=== PATIENT | female | born 1950 | race Caucasian/White ===

== ENCOUNTER 2024-07-29 09:09 | Inpatient (IN) | payer MEDICARE ==
--- NOTE | 2024-07-29 09:40 | ED ---
General Adult HPI - General Chief complaint: Abdominal Pain Stated complaint: abd pain Time Seen by Provider: 07/29/24 09:15 Source: patient, RN/MD, RN notes reviewed Mode of arrival: ambulatory Limitations: no limitations - History of Present Illness Initial comments: Patient is a 74-year-old female present to the emergency department with concerns with dark stools. Patient had abdominal discomfort yesterday with dark stools. Patient has been experiencing abdominal discomfort for several days. Patient did have outpatient CT and ultrasound. Ultrasound with nonspecific findings. CT scan with concerns for thickening of the stomach and possible ulcer with inflammation. Patient states no significant discomfort at this time. Patient did have some nausea and lightheadedness in the middle of the night and did feel sweaty. Though symptoms have resolved. Right now patient is not feeling bad. - Related Data Allergies Allergy/AdvReac Type Severity Reaction Status Date / Time Sulfa (Sulfonamide Allergy Rash/Hives Verified 07/29/24 10:25 Antibiotics) Review of Systems ROS Statement: Those systems with pertinent positive or pertinent negative responses have been documented in the HPI. ROS Other: All systems not noted in ROS Statement are negative. Constitutional: Denies: fever Eyes: Denies: eye pain ENT: Denies: ear pain Respiratory: Denies: dyspnea Cardiovascular: Denies: chest pain Endocrine: Denies: fatigue Gastrointestinal: Reports: as per HPI, melena Genitourinary: Denies: dysuria Past Medical History Past Medical History: No Reported History History of Any Multi-Drug Resistant Organisms: None Reported Past Surgical History: Breast Surgery Past Psychological History: No Psychological Hx Reported Smoking Status: Former smoker Past Alcohol Use History: None Reported Past Drug Use History: None Reported General Exam Limitations: no limitations General appearance: alert, in no apparent distress Head exam: Present: normocephalic Eye exam: Present: normal appearance Neck exam: Present: normal inspection Respiratory exam: Present: normal lung sounds bilaterally Cardiovascular Exam: Present: regular rate, normal rhythm GI/Abdominal exam: Present: soft. Absent: tenderness Extremities exam: Present: normal inspection. Absent: pedal edema, calf tenderness Neurological exam: Present: alert Psychiatric exam: Present: normal affect, normal mood Skin exam: Present: normal color Course Vital Signs 07/29/24 07/29/24 07/29/24 09:11 09:46 10:07 Temperature 97.8 F Pulse Rate 126 H 99 95 Respiratory 18 16 18 Rate Blood Pressure 110/63 98/63 107/65 O2 Sat by Pulse 99 97 100 Oximetry EKG Findings - EKG Results: EKG: interpreted by ERMD, sinus rhythm, normal axis, normal QRS, normal ST/T EKG shows: tachycardia Medical Decision Making - Medical Decision Making Was pt. sent in by a medical professional or institution (, PA, [employer], urgent care, hospital, or retirement...) When possible be specific @ -No Did you speak to anyone other than the patient for history (EMS, parent, family, police, friend...)? What history was obtained from this source @ -I did speak with Dr. Oneill who will provide history including patient's symptoms and onset Did you review nursing and triage notes (agree or disagree)? Why? @ -I reviewed and agree with nursing and triage notes Were old charts reviewed (outside hosp., previous admission, EMS record, old EKG, old radiological studies, urgent care reports/EKG's, retirement records)? Report findings @ -Previous hemoglobin levels reviewed, hemoglobin has dropped from 14-8 Differential Diagnosis (chest pain, altered mental status, abdominal pain women, abdominal pain men, vaginal bleeding, weakness, fever, dyspnea, syncope, headache, dizziness, GI bleed, back pain, seizure, CVA, palpatations, mental health, musculoskeletal)? @ -Differential Abdominal Pain Women: Appendicitis, Cholecystitis, diverticulosis, ischemic bowel, pancreatitis, hepatitis, UTI, gastroenteritis, AAA, incarcerated hernia, bowel obstruction, constipation, inflammatory bowel, hepatitis, peptic ulcer disease, splenic infarction, perforated viscus, vulvitis, ovarian torsion, PID, kidney stone, placenta abruption, this is not meant to be an all-inclusive list EKG interpreted by me (3pts min.). @ -As above X-rays interpreted by me (1pt min.). @ -None done CT interpreted by me (1pt min.). @ -None done U/S interpreted by me (1pt. min.). @ -None done What testing was considered but not performed or refused? (CT, X-rays, U/S, labs)? Why? @ -Considered imaging however patient has had CT and ultrasound done recently, reports attached What meds were considered but not given or refused? Why? @ -None Did you discuss the management of the patient with other professionals (professionals i.e. DrKathryn, PA, [employer], lab, RT, psych nurse, social work professor, director general, teacher, liaison officer, renal case manager)? Give summary @ -Dr. Perez with plans to take patient for scope Was smoking cessation discussed for >3mins.? @ -No Was critical care preformed (if so, how long)? @ -No Were there social determinants of health that impacted care today? How? (Homelessness, low income, unemployed, alcoholism, drug addiction, transportation, low edu. Level, literacy, decrease access to med. care, halfway, rehab)? @ -No Was there de-escalation of care discussed even if they declined (Discuss DNR or withdrawal of care, Hospice)? DNR status @ -No What co-morbidities impacted this encounter? (DM, HTN, Smoking, COPD, CAD, Cancer, CVA, ARF, Chemo, Hep., AIDS, mental health diagnosis, sleep apnea, morbid obesity)? @ -None Was patient admitted / discharged? Hospital course, mention meds given and route, prescriptions, significant lab abnormalities, going to OR and other p ertinent info. @ -Patient presents with abdominal discomfort melena and decreasing hemoglobin. Patient will be admitted. Case also discussed with Dr. Maddox who will take patient for scope. Patient and family are updated. Admission orders written Undiagnosed new problem with uncertain prognosis? @ -No Drug Therapy requiring intensive monitoring for toxicity (Heparin, Nitro, Insulin, Cardizem)? @ -No Were any procedures done? @ -No Diagnosis/symptom? @ -Upper GI hemorrhage Acute, or Chronic, or Acute on Chronic? @ -Acute Uncomplicated (without systemic symptoms) or Complicated (systemic symptoms)? @ -Default Side effects of treatment? @ -No Exacerbation, Progression, or Severe Exacerbation? @ -No Poses a threat to life or bodily function? How? (Chest pain, [place], NM, pneumonia, PE, COPD, DKA, ARF, appy, cholecystitis, CVA, Diverticulitis, Homicidal, Suicidal, threat to staff... and all critical care pts) @ -No - Lab Data Result diagrams: 07/29/24 09:40 07/29/24 09:40 Lab Results 07/29/24 07/29/24 07/29/24 Range/Units 09:40 09:40 09:40 WBC 9.50 (4.50-10.00) 10*3/uL RBC 2.90 L (4.10-5.20) 10*6/uL Hgb 8.1 L (12.0-15.0) g/dL Hct 25.4 L (37.2-46.3) % MCV 87.6 (80.0-97.0) fL MCH 27.9 (27.0-32.0) pg MCHC 31.9 L (32.0-37.0) g/dL Plt Count 342 (140-440) 10*3/uL MPV 10.0 (9.5-12.2) fL Immature Gran % (Auto) 0.3 % Neutrophils % 84.0 % Lymphocytes % 9.5 % Monocytes % 5.8 % Eosinophils % 0.1 % Basophils % 0.3 % Immature Gran # 0.03 (0.00-0.04) 10*3/uL Neutrophils # 7.98 H (1.80-7.70) 10*3/uL Lymphocytes # 0.90 (0.90-5.00) 10*3/uL Monocytes # 0.55 (0.20-1.00) 10*3/uL Eosinophils # 0.01 L (0.04-0.35) 10*3/uL Basophils # 0.03 (0.00-0.10) 10*3/uL PT 11.7 (10.0-12.5) sec INR 1.1 (<1.2) APTT 20.6 L (22.0-30.0) sec Sodium 138 (137-145) mmol/L Potassium 4.4 (3.5-5.1) mmol/L Chloride 106 (98-107) mmol/L Carbon Dioxide 24 (22-30) mmol/L Anion Gap 8 mmol/L BUN 39 H (7-17) mg/dL Creatinine 0.50 L (0.52-1.04) mg/dL Est GFR (CKD-EPI)AfAm >90 (>60 ml/min/1.73 sqM) Est GFR (CKD-EPI)NonAf >90 (>60 ml/min/1.73 sqM) Glucose 116 H (74-99) mg/dL Calcium 8.8 (8.4-10.2) mg/dL Magnesium 1.8 (1.6-2.3) mg/dL Total Bilirubin 0.4 (0.2-1.3) mg/dL AST 17 (14-36) U/L ALT 13 (4-34) U/L Alkaline Phosphatase 65 (38-126) U/L Total Protein 6.0 L (6.3-8.2) g/dL Albumin 3.1 L (3.5-5.0) g/dL Lipase 102 (23-300) U/L Disposition Clinical Impression: Upper GI hemorrhage Disposition: ADMITTED IP TO THIS HOSP Is patient prescribed a controlled substance at d/c from ED?: No Referrals: Debbi Boyd MD [Primary Care Provider] - 1-2 days Time of Disposition: 11:05
[2024-07-29] MEDS: PANTOPRAZOLE 40 MG/10 ML VIAL IVP STA (09:43)
[2024-07-29 09:48] LABS: Basophils # (A) 0.03 10*3/uL (0.00-0.10); Basophils % (A) 0.3 %; Eosinophils # (A) 0.01 10*3/uL (0.04-0.35); Eosinophils % (A) 0.1 %; HCT 25.4 % (37.2-46.3); HGB 8.1 g/dL (12.0-15.0); Lymphocytes % (A) 9.5 %; MCH 27.9 pg (27.0-32.0); MCHC 31.9 g/dL (32.0-37.0); MCV 87.6 fL (80.0-97.0); Monocytes # (A) 0.55 10*3/uL (0.20-1.00); Monocytes % (A) 5.8 %; Neutrophils # (A) 7.98 10*3/uL (1.80-7.70); Platelet Count 342 10*3/uL (140-440); RDW 16.6 % (11.5-14.5)
[2024-07-29 10:08] LABS: ALT 13 U/L (4-34); AST 17 U/L (14-36); African American GFR (CKD) >90 (>60 ml/min/1.73 sqM); Albumin 3.1 g/dL (3.5-5.0); Alkaline Phosphatase 65 U/L (38-126); Anion Gap 8 mmol/L; Blood Urea Nitrogen 39 mg/dL (7-17); Calcium 8.8 mg/dL (8.4-10.2); Carbon Dioxide 24 mmol/L (22-30); Chloride 106 mmol/L (98-107); Glucose 116 mg/dL (74-99); Lipase 102 U/L (23-300); Magnesium 1.8 mg/dL (1.6-2.3); Non-African American GFR(CKD) >90 (>60 ml/min/1.73 sqM); Potassium 4.4 mmol/L (3.5-5.1); Sodium 138 mmol/L (137-145); Total Bilirubin 0.4 mg/dL (0.2-1.3)
[2024-07-29 10:20] LABS: INR 1.1 (<1.2); Prothrombin Time 11.7 sec (10.0-12.5)
[2024-07-29 10:30] LABS: Partial Thromboplastin Time 20.6 sec (22.0-30.0)
[2024-07-29] MEDS ORDERED: NALOXONE 0.4 MG/ML 1 ML VIAL IV PRN (11:05)
[2024-07-29] MEDS ORDERED: ONDANSETRON 4 MG/2 ML VIAL IVP PRN (11:05)
[2024-07-29] MEDS: PANTOPRAZOLE 40 MG/10 ML VIAL IV SCH (11:08)
[2024-07-29] MEDS ORDERED: LIDOCAINE 1% INJ 10MG/ML (20 ML MDV) ONE (12:12)
[2024-07-29] MEDS ORDERED: PROPOFOL 10 MG/ML 20 ML VIAL IV ONE (12:12)
[2024-07-29] MEDS: LACTATED RINGERS 1,000 ML IV ONE (12:16)
--- NOTE | 2024-07-29 12:19 | P.GSCN ---
History of Present Illness Consult date: 07/29/24 Reason for Consult: GI bleed History of present illness: 74-year-old female here for upper endoscopy. Patient was brought in through the ER this morning with melanotic stools and abdominal discomfort. Patient has felt ill since April of this year. Had a CAT scan performed in June showing a possible gastric ulcer with some surrounding inflammation. Patient with history of chronic constipation. Constipation has been fairly well-controlled with MiraLAX. No antiacid use. No melanotic stools prior to yesterday. Today's hemoglobin 8.1. Previous hemoglobin was 14. [place] somewhat weak last night. Feels better this morning. Appetite diminished. 15 pound weight loss. No prior EGD. No history of previous ulcer disease. Patient does take 325 aspirin twice daily for the last several years. Review of Systems The patient denies any acute changes in vision or hearing, no dysphagia or odynophagia, no chest pain or shortness of breath, no dysuria or hematuria, no headache, no runny nose, no rectal bleeding Past Medical History Past Medical History: No Reported History History of Any Multi-Drug Resistant Organisms: None Reported Past Surgical History: Breast Surgery Past Psychological History: No Psychological Hx Reported Smoking Status: Former smoker Past Alcohol Use History: None Reported Past Drug Use History: None Reported Medications and Allergies Home Medications Medication Instructions Recorded Confirmed Type Anastrozole [Arimidex] 1 mg PO DAILY 07/29/24 07/29/24 History Ascorbic Acid [Vitamin C] 1,000 mg PO DAILY 07/29/24 07/29/24 History Aspirin EC [Ecotrin] 650 mg PO DAILY 07/29/24 07/29/24 History Calcium/Vitamin D (Unknown Dose) 1 dose PO DAILY 07/29/24 07/29/24 History Linaclotide [Linzess] 145 mcg PO DAILY 07/29/24 07/29/24 History Vit C/E/Zn/Coppr/Lutein/Zeaxan 2 cap PO DAILY 07/29/24 07/29/24 History [Preservision Areds 2 Softgel] Allergies Allergy/AdvReac Type Severity Reaction Status Date / Time Sulfa (Sulfonamide Allergy Rash/Hives Verified 07/29/24 11:32 Antibiotics) Surgical - Exam Vital Signs Temp Pulse Resp BP Pulse Ox 97.8 F 126 H 18 110/63 99 07/29/24 09:11 07/29/24 09:11 07/29/24 09:11 07/29/24 09:11 07/29/24 09:11 Physical exam: General: Well-developed, well-nourished HEENT: Normocephalic, sclerae nonicteric Abdomen: Nontender, nondistended Extremities: No edema Neuro: Alert and oriented Results - Labs 07/29/24 09:40 07/29/24 09:40 Abnormal Lab Results - Last 24 Hours (Table) 07/29/24 07/29/24 07/29/24 Range/Units 09:40 09:40 09:40 RBC 2.90 L (4.10-5.20) 10*6/uL Hgb 8.1 L (12.0-15.0) g/dL Hct 25.4 L (37.2-46.3) % MCHC 31.9 L (32.0-37.0) g/dL Neutrophils # 7.98 H (1.80-7.70) 10*3/uL Eosinophils # 0.01 L (0.04-0.35) 10*3/uL APTT 20.6 L (22.0-30.0) sec BUN 39 H (7-17) mg/dL Creatinine 0.50 L (0.52-1.04) mg/dL Glucose 116 H (74-99) mg/dL Total Protein 6.0 L (6.3-8.2) g/dL Albumin 3.1 L (3.5-5.0) g/dL Diabetes panel 07/29/24 Range/Units 09:40 Sodium 138 (137-145) mmol/L Potassium 4.4 (3.5-5.1) mmol/L Chloride 106 (98-107) mmol/L Carbon Dioxide 24 (22-30) mmol/L BUN 39 H (7-17) mg/dL Creatinine 0.50 L (0.52-1.04) mg/dL Glucose 116 H (74-99) mg/dL Calcium 8.8 (8.4-10.2) mg/dL AST 17 (14-36) U/L ALT 13 (4-34) U/L Alkaline Phosphatase 65 (38-126) U/L Total Protein 6.0 L (6.3-8.2) g/dL Albumin 3.1 L (3.5-5.0) g/dL Calcium panel 07/29/24 Range/Units 09:40 Calcium 8.8 (8.4-10.2) mg/dL Albumin 3.1 L (3.5-5.0) g/dL Pituitary panel 07/29/24 Range/Units 09:40 Sodium 138 (137-145) mmol/L Potassium 4.4 (3.5-5.1) mmol/L Chloride 106 (98-107) mmol/L Carbon Dioxide 24 (22-30) mmol/L BUN 39 H (7-17) mg/dL Creatinine 0.50 L (0.52-1.04) mg/dL Glucose 116 H (74-99) mg/dL Calcium 8.8 (8.4-10.2) mg/dL Adrenal panel 07/29/24 Range/Units 09:40 Sodium 138 (137-145) mmol/L Potassium 4.4 (3.5-5.1) mmol/L Chloride 106 (98-107) mmol/L Carbon Dioxide 24 (22-30) mmol/L BUN 39 H (7-17) mg/dL Creatinine 0.50 L (0.52-1.04) mg/dL Glucose 116 H (74-99) mg/dL Calcium 8.8 (8.4-10.2) mg/dL Total Bilirubin 0.4 (0.2-1.3) mg/dL AST 17 (14-36) U/L ALT 13 (4-34) U/L Alkaline Phosphatase 65 (38-126) U/L Total Protein 6.0 L (6.3-8.2) g/dL Albumin 3.1 L (3.5-5.0) g/dL Assessment and Plan (1) Upper GI hemorrhage Narrative/Plan: Will proceed with EGD at this time. Current Visit: Yes Status: Acute Code(s): K92.2 - GASTROINTESTINAL HEMORRHAGE, UNSPECIFIED SNOMED Code(s): 08011765
--- NOTE | 2024-07-29 12:50 | P.PCN ---
Date of Procedure: 07/29/24 Procedure(s) Performed: Preoperative Dx: Upper GI bleed Postoperative Dx: Gastric ulcer, small hiatal hernia Procedure: EGD with Bx Anesthesia: Sedation Endoscopist: Dr. Boyd Specimens: Antrum Endoscopic Procedure: The patient was on the endoscopy table in the left decubitus position. The Olympus gastroscope was inserted into the oropharynx and passed under direct visualization to the region of the third portion of the duodenum. From that point the scope was slowly withdrawn inspecting all surfaces carefully. There were no neoplastic inflammatory or polypoid lesions throughout the duodenum. The pylorus was widely patent. The stomach was carefully inspected. There was patient had a large volume of old blood and clot within the stomach. Some of this was food like material. This was evacuated using the pediatric colonoscope. The initial adult gastroscope had been removed and replaced with the pediatric colonoscope. Slowly we are able to evacuate all of the old clots and blood. The patient had a visible ulcer crater filled with clot in the antrum. This measured about 1.5 to 2 cm in diameter. The edges appeared healthy without neoplastic changes. There was no active bleeding from the ulcer crater itself. A portion of the overlying clot was evacuated. I did not remove all of the clot from the ulcer crater. Still no bleeding was seen. No biopsy of the ulcer itself took place. I did take a biopsy of the antrum to evaluate for H. pylori. Retroflexion revealed a small hiatal hernia. The GE junction was present 1 cm above the diaphragmatic hiatus. The esophagus was free of inflammation. The patient was then taken to the recovery room in stable condition per anesthesia guidelines. Recommendations: Continue antiacid therapy in the form of Protonix IV twice daily and Carafate 3 times daily. Resume clear liquid diet. Monitor hemoglobin. Will require short-term follow-up EGD. Case is Dr. With Dr. Hernández at the completion of the procedure. Patient was supposed to see her in the office tomorrow. She is apparently already scheduled for EGD with Dr. Do in September.
--- NOTE | 2024-07-29 13:11 | P.HPIM ---
History of Present Illness H&P Date: 07/29/24 History of present illness; patient is a 74-year-old lady with no significant past medical history who presents the ER because of dark stools. Patient states that she has been having problems with her stomach for the last couple of months, patient follows up with Dr. Do from GI and was scheduled for a scope in September. Patient also had an ultrasound and a CT scan done outpatient. CAT scan performed in June showing a possible gastric ulcer with some surrounding inflammation. Patient with history of chronic constipation. Patient stated for the last couple of days she has been noticing that her stools were darker in color. Patient was complaining of epigastric pain. There is no current nausea or vomiting. Patient was not complain of any hematemesis. Patient was also complaining of dizziness. Patient denies any chest pain. There was complaint of shortness of breath on exertion. Because of the symptoms, patient came to the ER Initial lab work done in the ER showed WBC 9.5, hemoglobin 8.1, platelet count 342 sodium 131 calcium 4.4, BUN/creatinine ordered and 0.50, glucose 116, lipase 102 Patient admitted to internal medicine service REVIEW OF SYSTEMS: CONSTITUTIONAL: No fever, no malaise, no fatigue. HEENT: No recent visual problems or hearing problems. Denied any sore throat. CARDIOVASCULAR: No chest pain, orthopnea, PND, no palpitations, no syncope. PULMONARY: No shortness of breath, no cough, no hemoptysis. GASTROINTESTINAL: As mentioned above . NEUROLOGICAL: No headaches, no weakness, no numbness. HEMATOLOGICAL: Denies any bleeding or petechiae. GENITOURINARY: Denies any burning micturition, frequency, or urgency. MUSCULOSKELETAL/RHEUMATOLOGICAL: Denies any joint pain, swelling, or any muscle pain. ENDOCRINE: Denies any polyuria or polydipsia. The rest of the 14-point review of systems is negative. PHYSICAL EXAMINATION: GENERAL: The patient is alert and oriented x3, not in any acute distress. Well developed, well nourished. HEENT: Pupils are round and equally reacting to light. EOMI. No scleral icterus. No conjunctival pallor. Normocephalic, atraumatic. No pharyngeal erythema. No thyromegaly. CARDIOVASCULAR: S1 and S2 present. No murmurs, rubs, or gallops. PULMONARY: Chest is clear to auscultation, no wheezing or crackles. ABDOMEN: Soft, nontender, nondistended, normoactive bowel sounds. No palpable organomegaly. MUSCULOSKELETAL: No joint swelling or deformity. EXTREMITIES: No cyanosis, clubbing, or pedal edema. NEUROLOGICAL: Gross neurological examination did not reveal any focal deficits. SKIN: No rashes. Assessment and plan Acute blood loss anemia GI bleed History of constipation Monitor vital signs Monitor CBC Monitor CMP Ordered anemia workup in the form of vitamin B12, folate, iron saturation Start IV Protonix Start IV fluids General Surgery consulted as there is no current GI coverage in the hospital. Patient scheduled for EGD today Labs and medication were reviewed.. Continue same treatment. Continue with symptomatic treatment. Resume home medication. Monitor labs and vitals. DVT and GI prophylaxis. Further recommendations as per clinical course of the patient Dictation was produced using [employer] dictation software. please excuse any grammatical, word or spelling errors. Past Medical History Past Medical History: No Reported History History of Any Multi-Drug Resistant Organisms: None Reported Past Surgical History: Breast Surgery Past Psychological History: No Psychological Hx Reported Smoking Status: Former smoker Past Alcohol Use History: None Reported Past Drug Use History: None Reported Medications and Allergies Home Medications Medication Instructions Recorded Confirmed Type Anastrozole [Arimidex] 1 mg PO DAILY 07/29/24 07/29/24 History Ascorbic Acid [Vitamin C] 1,000 mg PO DAILY 07/29/24 07/29/24 History Aspirin EC [Ecotrin] 650 mg PO DAILY 07/29/24 07/29/24 History Calcium/Vitamin D (Unknown Dose) 1 dose PO DAILY 07/29/24 07/29/24 History Linaclotide [Linzess] 145 mcg PO DAILY 07/29/24 07/29/24 History Vit C/E/Zn/Coppr/Lutein/Zeaxan 2 cap PO DAILY 07/29/24 07/29/24 History [Preservision Areds 2 Softgel] Allergies Allergy/AdvReac Type Severity Reaction Status Date / Time Sulfa (Sulfonamide Allergy Rash/Hives Verified 07/29/24 11:32 Antibiotics) Physical Exam Vitals: Vital Signs Temp Pulse Pulse Resp BP BP Pulse Ox 07/29/24 12:52 98 F 77 16 90/60 99 07/29/24 11:44 97.8 F 86 16 101/68 98 07/29/24 11:04 92 16 98/53 100 07/29/24 10:07 95 18 107/65 100 07/29/24 09:46 99 16 98/63 97 07/29/24 09:11 97.8 F 126 H 18 110/63 99 Intake and Output 07/28/24 07/29/24 07/29/24 22:59 06:59 14:59 Intake Total 500 Balance 500 Intake: IV 500 Other: Weight 46.72 kg Results CBC & Chem 7: 07/29/24 09:40 07/29/24 09:40 Labs: Abnormal Lab Results - Last 24 Hours (Table) 07/29/24 07/29/24 07/29/24 Range/Units 09:40 09:40 09:40 RBC 2.90 L (4.10-5.20) 10*6/uL Hgb 8.1 L (12.0-15.0) g/dL Hct 25.4 L (37.2-46.3) % MCHC 31.9 L (32.0-37.0) g/dL Neutrophils # 7.98 H (1.80-7.70) 10*3/uL Eosinophils # 0.01 L (0.04-0.35) 10*3/uL APTT 20.6 L (22.0-30.0) sec BUN 39 H (7-17) mg/dL Creatinine 0.50 L (0.52-1.04) mg/dL Glucose 116 H (74-99) mg/dL Total Protein 6.0 L (6.3-8.2) g/dL Albumin 3.1 L (3.5-5.0) g/dL
[2024-07-29] MEDS: SODIUM CHLORIDE 0.9% 1,000 ML IV SCH (14:38)
[2024-07-29] MEDS: SUCRALFATE 1 GM TAB PO SCH (18:25)
[2024-07-29 18:26] LABS: % Iron Saturation 10.43 (12.00-45.00)
[2024-07-29] MEDS: PANTOPRAZOLE 40 MG/10 ML VIAL IVP SCH (20:10)
[2024-07-29] MEDS: polyethylene glycoL 3350 17 GM POWD.PACK PO PRN (20:43)
[2024-07-30 08:39] LABS: ALT 10 U/L (8-44); AST 13 U/L (13-35); Albumin 2.7 g/dL (3.8-4.9); Albumin/Globulin Ratio 1.29 Ratio (1.60-3.17); Alkaline Phosphatase 59 U/L (41-126); Blood Urea Nitrogen 18.1 mg/dL (9.0-27.0); Calcium 8.1 mg/dL (8.7-10.3); Carbon Dioxide 25.5 mmol/L (21.6-31.8); Chloride 108 mmol/L (96-109); Globulin 2.1 g/dL (1.6-3.3); Glucose 88 mg/dL (70-110); Magnesium 1.9 mg/dL (1.5-2.4); Sodium 141 mmol/L (135-145); Total Bilirubin <0.2 mg/dL (0.3-1.2); Total Protein 4.8 g/dL (6.2-8.2)
[2024-07-30] MEDS: SODIUM FERRIC GLUCONAT-SUCROSE 125 MG in SODIUM CHLORIDE 0.9% 100 ML IVPB SCH (09:00)
[2024-07-30 11:10] LABS: Basophils # (A) 0.04 X 10*3/uL (0.00-0.10); Basophils % (A) 0.5 %; Eosinophils # (A) 0.07 X 10*3/uL (0.04-0.35); Eosinophils % (A) 0.8 %; HCT 21.9 % (37.2-46.3); HGB 6.6 g/dL (12.0-15.0); Lymphocytes # (A) 1.41 X 10*3/uL (0.90-5.00); Lymphocytes % (A) 16.9 %; MCH 26.9 pg (27.0-32.0); MCHC 30.1 g/dL (32.0-37.0); MCV 89.4 FL (80.0-97.0); Mean Platelet Volume 10.3 FL (9.5-12.2); Monocytes # (A) 0.51 X 10*3/uL (0.20-1.00); Monocytes % (A) 6.1 %; NRBC Per 100 WBC 0 X 10*3/uL (0.00-0.01); Neutrophils % (A) 75.3 %; Platelet Count 286 X 10*3/uL (140-440); RBC 2.45 X 10*6/uL (4.10-5.20); RBC Morphology Normal (Normal); RDW 16.8 % (11.5-14.5); WBC 8.36 X 10*3/uL (4.50-10.00)
--- NOTE | 2024-07-30 12:23 | P.PN ---
Subjective Progress Note Date: 07/30/24 SURGICAL PROGRESS NOTE CHIEF COMPLAINT: Gastric ulcer HISTORY OF PRESENT ILLNESS: Patient status post EGD yesterday which revealed a gastric ulcer and small hiatal hernia. Patient does report a black stool yesterday. She denies any abdominal pain. Denies any nausea or vomiting. Hemoglobin did go down from 8.1-6.6 she is receiving IV iron. PHYSICAL EXAM: VITAL SIGNS: Reviewed. GENERAL: Well-developed in no acute distress. ABDOMEN: Soft. Nondistended. Nontender. NEUROLOGIC: Alert and oriented. Cranial nerves II through XII grossly intact. ASSESSMENT: 1. Upper GI bleed secondary to gastric ulcer. Status post EGD with gastric ulcer and small hiatal hernia 2. Acute blood loss anemia due to GI bleed PLAN: - 1 unit of blood ordered for hemoglobin of 6.6 - Repeat CBC in a.m. - Advance diet to full liquids - Continue IV Protonix and Carafate Physician [employer] Professional note has been reviewed by physician. Signing provider agrees with the documented findings, assessment, and plan of care. Objective - Vital Signs Vital signs: Vital Signs Temp 98.2 F 07/30/24 07:15 Pulse 80 07/30/24 07:15 Resp 15 07/30/24 07:15 BP 103/63 07/30/24 07:15 Pulse Ox 100 07/30/24 07:15 FiO2 Intake & Output 07/29/24 07/30/24 07/30/24 18:59 06:59 18:59 Intake Total 600 Balance 600 Weight 46.72 kg Intake: IV 600 Other: Voiding Method Toilet Toilet # Voids 2 - Labs CBC & Chem 7: 07/30/24 04:32 07/30/24 04:32 Labs: Abnormal Lab Results - Last 24 Hours (Table) 07/29/24 07/29/24 07/30/24 Range/Units 09:40 09:40 04:32 RBC 2.45 L (4.10-5.20) X 10*6/uL Hgb 6.6 A* (12.0-15.0) g/dL Hct 21.9 L (37.2-46.3) % MCH 26.9 L (27.0-32.0) pg MCHC 30.1 L (32.0-37.0) g/dL RDW 16.8 H (11.5-14.5) % Creatinine (0.6-1.5) mg/dL BUN/Creatinine Ratio (12.00-20.00) Ratio Calcium (8.7-10.3) mg/dL Iron 22 L (50-170) UG/DL TIBC 211 L (228-460) UG/DL % Saturation 10.43 L (12.00-45.00) Transferrin 151.0 L (204.0-354.0) mg/dL Total Bilirubin (0.3-1.2) mg/dL Total Protein (6.2-8.2) g/dL Albumin (3.8-4.9) g/dL Albumin/Globulin Ratio (1.60-3.17) Ratio RBC Folate 949 H (280 - 791) ng/mL 07/30/24 Range/Units 04:32 RBC (4.10-5.20) X 10*6/uL Hgb (12.0-15.0) g/dL Hct (37.2-46.3) % MCH (27.0-32.0) pg MCHC (32.0-37.0) g/dL RDW (11.5-14.5) % Creatinine 0.5 L (0.6-1.5) mg/dL BUN/Creatinine Ratio 36.20 H (12.00-20.00) Ratio Calcium 8.1 L (8.7-10.3) mg/dL Iron (50-170) UG/DL TIBC (228-460) UG/DL % Saturation (12.00-45.00) Transferrin (204.0-354.0) mg/dL Total Bilirubin <0.2 L (0.3-1.2) mg/dL Total Protein 4.8 L (6.2-8.2) g/dL Albumin 2.7 L (3.8-4.9) g/dL Albumin/Globulin Ratio 1.29 L (1.60-3.17) Ratio RBC Folate (280 - 791) ng/mL
[2024-07-30 12:42] VITALS: BMI 17.6
[2024-07-31 06:33] LABS: HCT 26.3 % (37.2-46.3); HGB 8.5 g/dL (12.0-15.0); MCH 28.2 pg (27.0-32.0); MCHC 32.3 g/dL (32.0-37.0); MCV 87.4 fL (80.0-97.0); Platelet Count 292 10*3/uL (140-440); RBC 3.01 10*6/uL (4.10-5.20); RDW 16.1 % (11.5-14.5); WBC 5.63 10*3/uL (4.50-10.00)
[2024-07-31 07:31] VITALS: BP 95/56; PULSE 82; RESP 15; TEMP 98.6
--- NOTE | 2024-07-31 11:53 | P.PN ---
Subjective Progress Note Date: 07/30/24 patient is a 74-year-old lady with no significant past medical history who presents the ER because of dark stools. Patient states that she has been having problems with her stomach for the last couple of months, patient follows up with Dr. Do from GI and was scheduled for a scope in September. Patient also had an ultrasound and a CT scan done outpatient. CAT scan performed in June showing a possible gastric ulcer with some surrounding inflammation. Patient with history of chronic constipation. Patient stated for the last couple of days she has been noticing that her stools were darker in color. Patient was complaining of epigastric pain. There is no current nausea or vomiting. Patient was not complain of any hematemesis. Patient was also complaining of dizziness. Patient denies any chest pain. There was complaint of shortness of breath on exertion. Because of the symptoms, patient came to the ER Initial lab work done in the ER showed WBC 9.5, hemoglobin 8.1, platelet count 342 sodium 131 calcium 4.4, BUN/creatinine ordered and 0.50, glucose 116, lipase 102 Patient admitted to internal medicine service 11/30. Patient seen examined. Patient had EGD done that showed visible gastric ulcer with crater filled with clot in the antrum measuring 1.5 to 2 cm in diameter. Currently on Clear liquid. Anemia workup noted. Hemoglobin was low, ordered 1 unit of packed red blood cell REVIEW OF SYSTEMS: CONSTITUTIONAL: No fever, no malaise,. CARDIOVASCULAR: No chest pain, no palpitations, no syncope. PULMONARY: No shortness of breath, no cough, GASTROINTESTINAL: No diarrhea, no nausea, no vomiting, no abdominal pain. NEUROLOGICAL: No headaches, no weakness, PHYSICAL EXAMINATION: GENERAL: The patient is alert and oriented x3, not in any acute distress. Well developed, well nourished. HEENT: Pupils are round and equally reacting to light. EOMI. No scleral icterus. No conjunctival pallor. Normocephalic, atraumatic. No pharyngeal erythema. No thyromegaly. CARDIOVASCULAR: S1 and S2 present. No murmurs, rubs, or gallops. PULMONARY: Chest is clear to auscultation, no wheezing or crackles. ABDOMEN: Soft, nontender, nondistended, normoactive bowel sounds. No palpable organomegaly. MUSCULOSKELETAL: No joint swelling or deformity. EXTREMITIES: No cyanosis, clubbing, or pedal edema. NEUROLOGICAL: Gross neurological examination did not reveal any focal deficits. SKIN: No rashes. Assessment and plan Acute blood loss anemia Gastric ulcer Iron deficiency anemia GI bleed History of constipation Monitor vital signs Monitor CBC Monitor CMP EGD done that showed visible gastric ulcer with crater filled with clot in the antrum measuring 1.5 to 2 cm in diameter Hemoglobin was low, ordered 1 unit packed red blood cell Continue clear liquid diet, advance as tolerated Continue IV Protonix continue Carafate Ordered IV Venofer Surgery following Labs and medication were reviewed.. Continue same treatment. Continue with symptomatic treatment. Resume home medication. Monitor labs and vitals. DVT and GI prophylaxis. Further recommendations as per clinical course of the patient Dictation was produced using [employer] dictation software. please excuse any gr ammatical, word or spelling errors. Objective - Vital Signs Vital signs: Vital Signs Temp 98.2 F 07/30/24 07:15 Pulse 80 07/30/24 07:15 Resp 15 07/30/24 07:15 BP 103/63 07/30/24 07:15 Pulse Ox 100 07/30/24 07:15 FiO2 Intake & Output 07/29/24 07/30/24 07/30/24 18:59 06:59 18:59 Intake Total 600 Balance 600 Weight 46.72 kg Intake: IV 600 Other: Voiding Method Toilet # Voids 2 - Labs CBC & Chem 7: 07/31/24 06:08 07/30/24 04:32 Labs: Abnormal Lab Results - Last 24 Hours (Table) 07/29/24 07/29/24 07/29/24 Range/Units 09:40 09:40 09:40 RBC 2.90 L (4.10-5.20) 10*6/uL Hgb 8.1 L (12.0-15.0) g/dL Hct 25.4 L (37.2-46.3) % MCHC 31.9 L (32.0-37.0) g/dL Neutrophils # 7.98 H (1.80-7.70) 10*3/uL Eosinophils # 0.01 L (0.04-0.35) 10*3/uL APTT 20.6 L (22.0-30.0) sec BUN 39 H (7-17) mg/dL Creatinine 0.50 L (0.52-1.04) mg/dL Glucose 116 H (74-99) mg/dL Iron (50-170) UG/DL TIBC (228-460) UG/DL % Saturation (12.00-45.00) Transferrin (204.0-354.0) mg/dL Total Protein 6.0 L (6.3-8.2) g/dL Albumin 3.1 L (3.5-5.0) g/dL 07/29/24 Range/Units 09:40 RBC (4.10-5.20) 10*6/uL Hgb (12.0-15.0) g/dL Hct (37.2-46.3) % MCHC (32.0-37.0) g/dL Neutrophils # (1.80-7.70) 10*3/uL Eosinophils # (0.04-0.35) 10*3/uL APTT (22.0-30.0) sec BUN (7-17) mg/dL Creatinine (0.52-1.04) mg/dL Glucose (74-99) mg/dL Iron 22 L (50-170) UG/DL TIBC 211 L (228-460) UG/DL % Saturation 10.43 L (12.00-45.00) Transferrin 151.0 L (204.0-354.0) mg/dL Total Protein (6.3-8.2) g/dL Albumin (3.5-5.0) g/dL
--- NOTE | 2024-07-31 11:55 | P.DS ---
Providers Date of admission: 07/30/24 13:39 Expected date of discharge: 07/31/24 Attending physician: Kindra Flores Consults: 07/29/24 11:05 Consult Physician Urgent Consulting Provider: Herve Boyd Reason/Comments: upper gi hemorrhage Do you want consulting provider notified?: Yes Primary care physician: Debbi Boyd Hospital Course: Discharge diagnoses; Acute blood loss anemia Gastric ulcer Iron deficiency anemia GI bleed History of constipation Hospital course; patient is a 74-year-old lady with no significant past medical history who presents the ER because of dark stools. Patient states that she has been having problems with her stomach for the last couple of months, patient follows up with Dr. Do from GI and was scheduled for a scope in September. Patient also had an ultrasound and a CT scan done outpatient. CAT scan performed in June showing a possible gastric ulcer with some surrounding inflammation. Patient with history of chronic constipation. Patient stated for the last couple of days she has been noticing that her stools were darker in color. Patient was complaining of epigastric pain. There is no current nausea or vomiting. Patient was not complain of any hematemesis. Patient was also complaining of dizziness. Patient denies any chest pain. There was complaint of shortness of breath on exertion. Because of the symptoms, patient came to the ER Initial lab work done in the ER showed WBC 9.5, hemoglobin 8.1, platelet count 342 sodium 131 calcium 4.4, BUN/creatinine ordered and 0.50, glucose 116, lipase 102 Patient admitted to internal medicine service 07/30. Patient seen examined. Patient had EGD done that showed visible gastric ulcer with crater filled with clot in the antrum measuring 1.5 to 2 cm in diameter. Currently on Clear liquid. Anemia workup noted. Hemoglobin was low, ordered 1 unit of packed red blood cell 07/31. Patient seen and examined. Hemoglobin this morning is 8.5. Being discharged on oral Protonix, Carafate and iron supplementation. Patient to follow-up outpatient with PCP and GI PHYSICAL EXAMINATION: GENERAL: The patient is alert and oriented x3, not in any acute distress. Well developed, well nourished. HEENT: Pupils are round and equally reacting to light. EOMI. No scleral icterus. No conjunctival pallor. Normocephalic, atraumatic. No pharyngeal erythema. No thyromegaly. CARDIOVASCULAR: S1 and S2 present. No murmurs, rubs, or gallops. PULMONARY: Chest is clear to auscultation, no wheezing or crackles. ABDOMEN: Soft, nontender, nondistended, normoactive bowel sounds. No palpable organomegaly. MUSCULOSKELETAL: No joint swelling or deformity. EXTREMITIES: No cyanosis, clubbing, or pedal edema. NEUROLOGICAL: Gross neurological examination did not reveal any focal deficits. SKIN: No rashes. Dictation was produced using [employer] dictation software. please excuse any grammatical, word or spelling errors. Plan - Discharge Summary Discharge Rx Participant: Yes New Discharge Prescriptions: New Sucralfate [Carafate] 1 gm PO TID #90 tablet Ferrous Sulfate [Feosol] 325 mg PO BID #60 tab Pantoprazole Sodium [Protonix] 40 mg PO BID #60 tab Continue Calcium/Vitamin D (Unknown Dose) 1 dose PO DAILY Linaclotide [Linzess] 145 mcg PO DAILY Ascorbic Acid [Vitamin C] 1,000 mg PO DAILY Anastrozole [Arimidex] 1 mg PO DAILY Vit C/E/Zn/Coppr/Lutein/Zeaxan [Preservision Areds 2 Softgel] 2 cap PO DAILY Discontinued Aspirin EC [Ecotrin] 650 mg PO DAILY Discharge Medication List Anastrozole [Arimidex] 1 mg PO DAILY 07/29/24 [History] Ascorbic Acid [Vitamin C] 1,000 mg PO DAILY 07/29/24 [History] Calcium/Vitamin D (Unknown Dose) 1 dose PO DAILY 07/29/24 [History] Linaclotide [Linzess] 145 mcg PO DAILY 07/29/24 [History] Vit C/E/Zn/Coppr/Lutein/Zeaxan [Preservision Areds 2 Softgel] 2 cap PO DAILY [History] Ferrous Sulfate [Feosol] 325 mg PO BID #60 tab 07/30/24 [Rx] Pantoprazole Sodium [Protonix] 40 mg PO BID #60 tab 07/30/24 [Rx] Sucralfate [Carafate] 1 gm PO TID #90 tablet 07/30/24 [Rx] Follow up Appointment(s)/Referral(s): Debbi Boyd MD [Primary Care Provider] - 1-2 days Patient Instructions/Handouts: Gastrointestinal Bleeding (DC) Activity/Diet/Wound Care/Special Instructions: Prescriptions have been sent to the pharmacy per patient request Discharge Disposition: HOME SELF-CARE
--- NOTE | 2024-07-31 12:46 | P.PN ---
Subjective Progress Note Date: 07/31/24 SURGICAL PROGRESS NOTE CHIEF COMPLAINT: Gastric ulcer HISTORY OF PRESENT ILLNESS: Patient status post EGD yesterday which revealed a gastric ulcer and small hiatal hernia. Patient abdominal pain. She did have 1 black stool last night. She tolerated the full liquid diet. Hemoglobin is up from 6.6-8.5. PHYSICAL EXAM: VITAL SIGNS: Reviewed. GENERAL: Well-developed in no acute distress. ABDOMEN: Soft. Nondistended. Nontender. NEUROLOGIC: Alert and oriented. Cranial nerves II through XII grossly intact. ASSESSMENT: 1. Upper GI bleed secondary to gastric ulcer. Status post EGD with gastric ulcer and small hiatal hernia 2. Acute blood loss anemia due to GI bleed PLAN: -Patient is stable for discharge from surgical standpoint -Continue protonix and Carafate at discharge -ok to Advance diet as tolerated Physician Tailor Apprentice note has been reviewed by physician. Signing provider agrees with the documented findings, assessment, and plan of care. Objective - Vital Signs Vital signs: Vital Signs Temp 98.6 F 07/31/24 07:30 Pulse 82 07/31/24 07:30 Resp 15 07/31/24 07:30 BP 95/56 07/31/24 07:30 Pulse Ox 100 07/31/24 07:30 FiO2 Intake & Output 07/30/24 07/31/24 07/31/24 18:59 06:59 18:59 Intake Total 310 Balance 310 Weight 46.72 kg Intake: Blood Product 310 Rc As-1 Unit 310 [id number] Other: Voiding Method Toilet Toilet Toilet # Voids 3 1 - Labs CBC & Chem 7: 07/31/24 06:08 07/30/24 04:32 Labs: Abnormal Lab Results - Last 24 Hours (Table) 07/30/24 07/31/24 Range/Units 11:43 06:08 RBC 3.01 L (4.10-5.20) 10*6/uL Hgb 8.5 L (12.0-15.0) g/dL Hct 26.3 L (37.2-46.3) % RDW 16.1 H (11.5-14.5) % Crossmatch See Detail
== END 2024-07-31 13:18 | disposition home or self-care (01) | DRG 378 ==
LOC: MERGE 09:09 → EC 09:09 → 6NMEDSUR 11:07 → OBSVTOIN 07-30 13:39
PROVIDERS: ADMIT Hospitalist; ATTEND Hospitalist
PROC: 0DB78ZX Excision of Stomach, Pylorus, Via Natural or Artificial Opening Endoscopic, Diagnostic (ICD-10-PCS; principal; 2024-07-29 09:05)
PROC: 30233N1 Transfusion of Nonautologous Red Blood Cells into Peripheral Vein, Percutaneous Approach (ICD-10-PCS; 2024-07-30)
DX: K25.4 Chronic or unspecified gastric ulcer with hemorrhage (principal); D62 Acute posthemorrhagic anemia; D50.9 Iron deficiency anemia, unspecified; K44.9 Diaphragmatic hernia without obstruction or gangrene; K59.00 Constipation, unspecified; Z79.811 Long term (current) use of aromatase inhibitors; Z79.899 Other long term (current) drug therapy; Z87.891 Personal history of nicotine dependence; Z88.2 Allergy status to sulfonamides
CPT/HCPCS: 36415; 43239; 80053; 82607; 82728; 82747; 83540; 83550; 83690; 83735; 85025; 85027; 85610; 85730; 86850; 86900; 86901; 86920; 88305; 93005; 96374; 99285